=== PATIENT | male | born 1950 | race Caucasian/White ===

== ENCOUNTER 2022-04-23 09:31 | Emergency (ER) | payer BC, MEDICARE | END 2022-04-23 10:55 | disposition home or self-care (01) | LOC: CSHERS 09:31 | DX: S80.01XA Contusion of right knee, initial encounter (principal); I10 Essential (primary) hypertension; E78.5 Hyperlipidemia, unspecified; W22.8XXA Striking against or struck by other objects, initial encounter ==

== ENCOUNTER 2023-08-21 08:59 | Outpatient (CLI) | payer MEDICARE, BC ==
[2023-08-21 10:13] LABS: Hematocrit 46.7 % (38.8-50.0); Hemoglobin 16.5 g/dL (13.5-17.5); Mean Corpuscular HGB CONC 35.3 g/dL (32.0-36.0); Mean Corpuscular Volume 87.8 fl (81.2-95.1); Mean Platelet Volume 9.3 fl (7.4-10.4); Platelet Count 147 10x3/uL (150-450); RBC Distribution Width 12.7 % (11.5-14.5); Red Blood Cell (RBC) Count 5.32 10x6/uL (4.32-5.72)
[2023-08-21 10:36] LABS: Prothrombin Time 11.1 sec (9.5-12.1)
[2023-08-21 11:57] LABS: ALT (SGPT) 22 U/L (8-55); AST (SGOT) 21 U/L (5-34); Albumin 4.6 g/dL (3.4-4.8); Alkaline Phosphatase 54 U/L (40-110); Anion Gap 15 mmol/L (10-20); BUN (Urea Nitrogen) 15 mg/dL (8.4-25.7); Bilirubin, Total 1.3 mg/dL (0.2-1.2); Calc. Creatinine Clearance 0 mL/min (70-130); Calcium 9.6 mg/dL (7.8-10.44); Carbon Dioxide 23 mmol/L (23-31); Chloride 103 mmol/L (98-107); Estimated GFR 67; Globulin 2.7 g/dL (2.4-3.5); Glucose 171 mg/dL (83-110); Magnesium 2.4 mg/dL (1.6-2.6); Protein, Total 7.3 g/dL (5.8-8.1); Sodium 137 mmol/L (136-145)
== END 2023-08-21 09:00 | disposition home or self-care (01) ==
LOC: CSHLAB 08:59
PROVIDERS: ATTEND Specialist
DX: Z01.818 Encounter for other preprocedural examination (principal)
CPT/HCPCS: 80053; 83735; 85027; 85610; 93005; 93010

== ENCOUNTER 2023-08-22 08:50 | Day surgery (SDC) | payer MEDICARE, BC ==
[2023-08-22 09:35] VITALS: BP 138/79; TEMP 98.3
[2023-08-22] MEDS ORDERED: PROPOFOL 20 ML ONE (11:24)
== END 2023-08-22 12:52 | disposition home or self-care (01) ==
LOC: CSHSDC 08:50
PROVIDERS: ATTEND Specialist
PROC: 5A2204Z Restoration of Cardiac Rhythm, Single (ICD-10-PCS; principal; 2023-08-22)
DX: I48.11 Longstanding persistent atrial fibrillation (principal); I25.118 Atherosclerotic heart disease of native coronary artery with other forms of angina pectoris; I11.0 Hypertensive heart disease with heart failure; I50.32 Chronic diastolic (congestive) heart failure; E78.2 Mixed hyperlipidemia; I35.0 Nonrheumatic aortic (valve) stenosis; N40.0 Benign prostatic hyperplasia without lower urinary tract symptoms; D64.9 Anemia, unspecified; I49.5 Sick sinus syndrome; Z98.890 Other specified postprocedural states; Z79.899 Other long term (current) drug therapy
CPT/HCPCS: 92960; 93005; 93010; J2704

== ENCOUNTER 2024-07-05 08:24 | Day surgery (SDC) | payer MEDICARE, BC ==
[2024-07-05 10:23] LABS: Prothrombin Time 11.1 sec (9.5-12.1)
[2024-07-05 10:30] LABS: ALT (SGPT) 15 U/L (8-55); AST (SGOT) 18 U/L (5-34); Albumin 3.9 g/dL (3.4-4.8); Alkaline Phosphatase 44 U/L (40-110); Anion Gap 13 mmol/L (10-20); BUN (Urea Nitrogen) 16 mg/dL (8.4-25.7); Bilirubin, Total 0.8 mg/dL (0.2-1.2); Calc. Creatinine Clearance 0 mL/min (70-130); Calcium 9.5 mg/dL (7.8-10.44); Carbon Dioxide 24 mmol/L (23-31); Chloride 105 mmol/L (98-107); Estimated GFR 81; Globulin 2.8 g/dL (2.4-3.5); Glucose 149 mg/dL (83-110); Magnesium 2.1 mg/dL (1.6-2.6); Potassium 3.9 mmol/L (3.5-5.1); Protein, Total 6.7 g/dL (5.8-8.1); Sodium 138 mmol/L (136-145)
[2024-07-05 10:40] LABS: #Basophils 0.07 10x3/uL (0.0-0.2); #Eosinophils 0.32 10x3/uL (0.0-0.5); #Monocytes 0.65 10x3/uL (0.0-1.1); #Neutrophils 4.26 10x3/uL (1.5-8.4); %Eosinophils 4.5 % (0.0-6.0); %Lymphocytes 25.3 % (18.0-47.0); %Monocytes 9.1 % (0.0-10.0); %Neutrophils 59.8 % (40.0-75.0); Hemoglobin 15.6 g/dL (13.5-17.5); Mean Corpuscular HGB CONC 35.5 g/dL (32.0-36.0); Mean Corpuscular Hemoglobin 31.3 pg (27.0-33.0); Mean Corpuscular Volume 88.4 fL (81.2-95.1); Mean Platelet Volume 9.3 fL (7.4-10.4); Platelet Count 143 10x3/uL (150-450); RBC Distribution Width 13.3 % (11.5-14.5); Red Blood Cell (RBC) Count 4.98 10x6/uL (4.32-5.72); White Blood Cell (WBC) Count 7.1 10x3/uL (3.5-10.5)
== END 2024-07-05 12:35 | disposition home or self-care (01) ==
LOC: CSHSDC 08:24
PROVIDERS: ATTEND Specialist
DX: I48.19 Other persistent atrial fibrillation (principal); I11.0 Hypertensive heart disease with heart failure; I50.32 Chronic diastolic (congestive) heart failure; I49.5 Sick sinus syndrome; I25.10 Atherosclerotic heart disease of native coronary artery without angina pectoris; E78.2 Mixed hyperlipidemia; E11.9 Type 2 diabetes mellitus without complications; Z79.84 Long term (current) use of oral hypoglycemic drugs; Z79.01 Long term (current) use of anticoagulants; Z79.899 Other long term (current) drug therapy; Z53.8 Procedure and treatment not carried out for other reasons
CPT/HCPCS: 80053; 83735; 85025; 85610; 93005; 93010

== ENCOUNTER 2024-07-09 11:30 | Day surgery (SDC) | payer MEDICARE, BC ==
[2024-07-09 12:29] VITALS: BP 116/60; TEMP 98.7
[2024-07-09] MEDS ORDERED: FLU (Fluad Triv) TS24-25 (65UP)/MF59C/PF 45 MCG/0.5 ML Syringe IM ONE (12:45)
[2024-07-09] MEDS ORDERED: PROPOFOL 200 MG/20 ML VIAL ONE (17:00)
== END 2024-07-09 14:00 | disposition home or self-care (01) ==
LOC: CSHSDC 11:30
PROVIDERS: ATTEND Specialist
PROC: 5A2204Z Restoration of Cardiac Rhythm, Single (ICD-10-PCS; principal; 2024-07-09)
DX: I48.19 Other persistent atrial fibrillation (principal); I25.118 Atherosclerotic heart disease of native coronary artery with other forms of angina pectoris; I50.32 Chronic diastolic (congestive) heart failure; I11.0 Hypertensive heart disease with heart failure; E78.2 Mixed hyperlipidemia; I08.0 Rheumatic disorders of both mitral and aortic valves; E11.9 Type 2 diabetes mellitus without complications; I70.213 Atherosclerosis of native arteries of extremities with intermittent claudication, bilateral legs; I49.5 Sick sinus syndrome; Z95.0 Presence of cardiac pacemaker; Z79.899 Other long term (current) drug therapy; Z79.01 Long term (current) use of anticoagulants; Z98.890 Other specified postprocedural states; Z79.84 Long term (current) use of oral hypoglycemic drugs
CPT/HCPCS: 92960; 93005; J2704; 93010

== ENCOUNTER 2024-09-19 17:25 | Inpatient (IN) | payer MEDICARE, BC ==
[2024-09-19 18:13] LABS: ALT (SGPT) 19 U/L (8-55); AST (SGOT) 29 U/L (5-34); Albumin 3.5 g/dL (3.4-4.8); Alkaline Phosphatase 38 U/L (40-110); Anion Gap 12 mmol/L (10-20); BUN (Urea Nitrogen) 12 mg/dL (8.4-25.7); Calc. Creatinine Clearance 0 mL/min (70-130); Calcium 8.1 mg/dL (7.8-10.44); Carbon Dioxide 19 mmol/L (23-31); Chloride 109 mmol/L (98-107); Estimated GFR 88; Globulin 2.8 g/dL (2.4-3.5); Glucose 119 mg/dL (83-110); Potassium 3.5 mmol/L (3.5-5.1); Protein, Total 6.3 g/dL (5.8-8.1); Sodium 136 mmol/L (136-145)
[2024-09-19 18:21] LABS: Troponin I 0.214 ng/mL (< 0.028)
[2024-09-19 18:29] LABS: Bilirubin Neg (Negative); Blood, Urine 50 (Negative); Clarity Clear (Clear); Glucose, Urine (Dipstick) 50 mg/dL (Negative); Ketone, Urine Negative (Negative); Leukocyte Negative (Negative); Nitrite Negative (Negative); Protein, Urine (Dipstick) 30 mg/dl (Neg-Trace)
[2024-09-19 18:30] LABS: #Basophils 0.04 10x3/uL (0.0-0.2); #Eosinophils 0.05 10x3/uL (0.0-0.5); #Monocytes 0.73 10x3/uL (0.0-1.1); #Neutrophils 4.58 10x3/uL (1.5-8.4); %Basophils 0.7 % (0.0-2.0); %Eosinophils 0.8 % (0.0-6.0); %Lymphocytes 10.4 % (18.0-47.0); %Neutrophils 75.6 % (40.0-75.0); Hematocrit 35.8 % (38.8-50.0); Hemoglobin 12.7 g/dL (13.5-17.5); Mean Corpuscular HGB CONC 35.5 g/dL (32.0-36.0); Mean Corpuscular Hemoglobin 31.8 pg (27.0-33.0); Mean Corpuscular Volume 89.7 fL (81.2-95.1); Mean Platelet Volume 9.8 fL (7.4-10.4); Platelet Count 93 10x3/uL (150-450); RBC Distribution Width 12.9 % (11.5-14.5); Red Blood Cell (RBC) Count 3.99 10x6/uL (4.32-5.72); White Blood Cell (WBC) Count 6.1 10x3/uL (3.5-10.5)
[2024-09-19 18:51] LABS: CAUTI Indications for Culture Fever or rigors; RBC/HPF 0-3 HPF (0-3); WBC/HPF 0-3 HPF (0-3)
[2024-09-19 18:52] LABS: Bacteria/HPF Rare-Few HPF (None Seen); Squamous Epithelial 0-3 HPF (0-3); Urine Culture Reflex No No
[2024-09-19] MEDS ORDERED: Ondansetron PF 4 MG/2 ML Vial IVP PRN (19:10)
[2024-09-19] MEDS ORDERED: Calcium Carbonate 500 MG ChewTAB PO PRN (19:10)
[2024-09-19] MEDS ORDERED: Senokot S 8.6-50 MG TAB PO PRN (19:10)
[2024-09-19 19:58] VITALS: BMI 31.6
[2024-09-19] MEDS: Oseltamivir 75 MG CAP PO SCH (20:14)
[2024-09-19] MEDS: Rosuvastatin 10 MG TAB PO SCH (21:18)
[2024-09-19] MEDS: Apixaban 5 MG TAB PO SCH (21:18)
[2024-09-19] MEDS: Tamsulosin HCl 0.4 MG CAP PO SCH (21:18)
[2024-09-19 21:58] LABS: Critical Call Chem Troponin I NUR.ZNA AT 2157; Troponin I 0.218 ng/mL (< 0.028)
[2024-09-19 22:04] LABS: Platelet Adequacy Comment Appears Decreased
[2024-09-19] MEDS: Dronedarone HCl 400 MG TAB PO SCH (22:29)
[2024-09-20 00:47] LABS: Troponin I 0.189 ng/mL (< 0.028)
[2024-09-20] MEDS: Albuterol 2.5 MG (3 mL) NEB NEB PRN (01:40)
[2024-09-20] MEDS: Acetaminophen 325 MG TAB PO PRN (03:53)
[2024-09-20 04:33] LABS: ALT (SGPT) 17 U/L (8-55); AST (SGOT) 23 U/L (5-34); Albumin 3.6 g/dL (3.4-4.8); Alkaline Phosphatase 40 U/L (40-110); Anion Gap 14 mmol/L (10-20); BUN (Urea Nitrogen) 14 mg/dL (8.4-25.7); Bilirubin, Total 0.8 mg/dL (0.2-1.2); Calc. Creatinine Clearance 72 mL/min (70-130); Calcium 8.4 mg/dL (7.8-10.44); Carbon Dioxide 22 mmol/L (23-31); Chloride 103 mmol/L (98-107); Estimated GFR 72; Globulin 2.7 g/dL (2.4-3.5); Glucose 131 mg/dL (83-110); Magnesium 2.3 mg/dL (1.6-2.6); Potassium 3.2 mmol/L (3.5-5.1); Protein, Total 6.3 g/dL (5.8-8.1); Sodium 136 mmol/L (136-145)
[2024-09-20 04:40] LABS: #Basophils 0.05 10x3/uL (0.0-0.2); #Eosinophils 0.05 10x3/uL (0.0-0.5); #Monocytes 0.91 10x3/uL (0.0-1.1); #Neutrophils 2.95 10x3/uL (1.5-8.4); %Lymphocytes 21.2 % (18.0-47.0); %Neutrophils 58.4 % (40.0-75.0); Hematocrit 39.8 % (38.8-50.0); Hemoglobin 13.9 g/dL (13.5-17.5); Mean Corpuscular HGB CONC 34.9 g/dL (32.0-36.0); Mean Corpuscular Hemoglobin 31.5 pg (27.0-33.0); Mean Corpuscular Volume 90.2 fL (81.2-95.1); Mean Platelet Volume 9.7 fL (7.4-10.4); Platelet Count 102 10x3/uL (150-450); RBC Distribution Width 13.1 % (11.5-14.5); Red Blood Cell (RBC) Count 4.41 10x6/uL (4.32-5.72); White Blood Cell (WBC) Count 5.1 10x3/uL (3.5-10.5)
[2024-09-20] MEDS ORDERED: Dronedarone HCl 400 MG TAB PO SCH (08:00)
[2024-09-20] MEDS ORDERED: Amlodipine 5 MG TAB PO SCH (09:00)
[2024-09-20] MEDS: Dronedarone HCl 400 MG TAB PO SCH (09:52)
[2024-09-20] MEDS: Sertraline 100 MG TAB PO SCH (09:52)
[2024-09-20] MEDS: Spironolactone 25 MG TAB PO SCH (09:53)
[2024-09-20] MEDS: Amlodipine 5 MG TAB PO SCH (09:53)
[2024-09-20] MEDS: Torsemide 20 MG TAB PO SCH (09:54)
[2024-09-20] MEDS: Finasteride 5 MG TAB PO SCH (09:54)
[2024-09-20] MEDS: Clopidogrel Bisulfate 75 MG TAB PO SCH (09:54)
[2024-09-20] MEDS: Megestrol Acetate 40 MG TAB PO SCH (09:54)
[2024-09-20] MEDS: Loperamide HCl 2 MG CAP PO PRN (14:10)
[2024-09-21] MEDS ORDERED: metFORMIN 500 MG TAB PO SCH (08:00)
[2024-09-21 08:48] VITALS: BP 132/74; TEMP 98.4
[2024-09-21] MEDS: Amlodipine 5 MG TAB PO SCH (08:48)
[2024-09-21] MEDS: Potassium Chloride 20 MEQ TAB PO SCH (08:49)
[2024-09-21] MEDS ORDERED: tiZANidine HCl 4 MG TAB PO SCH (21:00)
== END 2024-09-21 12:10 | disposition home or self-care (01) | DRG 194 ==
LOC: SUATTDRO 17:25 → CSHERS 17:25 → CSHTELE 18:54 → OBSVTOIN 09-21 09:52
PROVIDERS: ADMIT Internal Medicine; ATTEND Internal Medicine
DX: J10.1 Influenza due to other identified influenza virus with other respiratory manifestations (principal); I50.32 Chronic diastolic (congestive) heart failure; I69.954 Hemiplegia and hemiparesis following unspecified cerebrovascular disease affecting left non-dominant side; I25.10 Atherosclerotic heart disease of native coronary artery without angina pectoris; E78.5 Hyperlipidemia, unspecified; D69.6 Thrombocytopenia, unspecified; I35.0 Nonrheumatic aortic (valve) stenosis; I49.5 Sick sinus syndrome; M19.90 Unspecified osteoarthritis, unspecified site; I11.0 Hypertensive heart disease with heart failure; Z95.820 Peripheral vascular angioplasty status with implants and grafts; E87.6 Hypokalemia; Z95.0 Presence of cardiac pacemaker; Z95.2 Presence of prosthetic heart valve; Z79.899 Other long term (current) drug therapy; Z79.890 Hormone replacement therapy
CPT/HCPCS: 36415; 71045; 80053; 81001; 83605; 83735; 83880; 84484; 85025; 87428; 93005; 93306; 94640; 94760; 94762; G0378; J7611

== ENCOUNTER 2024-10-14 09:53 | Emergency (ER) | payer MEDICARE, BC | END 2024-10-14 10:39 | disposition home or self-care (01) | LOC: CSHERS 09:53 | DX: M25.562 Pain in left knee (principal); I10 Essential (primary) hypertension; E11.9 Type 2 diabetes mellitus without complications; E78.5 Hyperlipidemia, unspecified; Z55.0 Illiteracy and low-level literacy; Z95.0 Presence of cardiac pacemaker; Z86.73 Personal history of transient ischemic attack (TIA), and cerebral infarction without residual deficits | CPT/HCPCS: 99283 ==